=== PATIENT | female | born 1985 | race Caucasian/White ===

== ENCOUNTER → 2023-12-26 11:10 | Outpatient (REF) | payer BC, SELFPAY | LOC: RAD 11:10 | PROVIDERS: ATTENDING PHYSICIAN Obstetrics & Gynecology; FAMILY PHYSICIAN Obstetrics & Gynecology Reproductive Endocrinology | DX: N97.1 Female infertility of tubal origin (principal) | CPT/HCPCS: 58340; 74740 ==

== ENCOUNTER → 2024-03-10 08:17 | Outpatient (REF) | payer BC, SELFPAY ==
[2024-03-10 10:10] LABS: HDL Cholesterol 77 mg/dl; LDL Cholesterol, Calculated 159 mg/dl; Total Cholesterol 252 mg/dl (50-199); Triglyceride 82 mg/dl (10-149); Very Low Density Lipoprotein 16 mg/dl (0-30)
[2024-03-10 10:37] LABS: Glucose 87 mg/dl (70-99)
== END ==
LOC: REG 08:17
PROVIDERS: ATTENDING PHYSICIAN Student in an Organized Health Care Education/Training Program; FAMILY PHYSICIAN Family Medicine
DX: Z13.220 Encounter for screening for lipoid disorders (principal)
CPT/HCPCS: 36415; 80061; 82947

== ENCOUNTER → 2024-04-21 15:02 | Outpatient (REF) | payer BC, SELFPAY ==
[2024-04-21 15:36] LABS: % Basophils 0.8 % (0-2); % Eosinophils 2.5 % (0-6); % Immature Granulocytes 0.3 % (0-0.5); % Lymphocytes 23.7 % (20.5-51.1); % Monocytes 6.2 % (1.7-9.3); % Neutrophils 66.5 % (42.2-75.2); Absolute Basophils 0.1 10^3/uL (0-0.2); Absolute Eosinophils 0.2 10^3/uL (0-0.7); Absolute Lymphocytes 2.3 10^3/uL (1.2-3.4); Absolute Monocytes 0.6 10^3/uL (0.1-0.6); Absolute Neutrophils 6.5 10^3/uL (1.4-6.5); Hematocrit 36.1 % (37.0-47.0); Hemoglobin 12.7 g/dL (12.0-16.0); Mean Corp Hgb Conc. 35.2 g/dL (33.0-37.0); Mean Corpuscular Hgb 31.4 pg (27.0-31.0); Mean Corpuscular Volume 89.4 fL (81.0-99.0); Nucleated Red Blood Cells % 0 %; Platelet Count 254 10^3/uL (130-400); Red Blood Cell Count 4.04 10^6/uL (4.20-5.40); Red Cell Dist. Width 12.1 % (11.5-14.5); White Blood Cell Count 9.7 10^3/uL (4.8-10.8)
[2024-04-21 15:45] LABS: Urine Albumin Negative (Neg - Trace); Urine Bilirubin Negative (Negative); Urine Character Clear (Clear); Urine Color Yellow; Urine Glucose Negative (Negative); Urine Ketone Negative (Negative); Urine Leukocyte Negative (Negative); Urine Nitrite Negative (Negative); Urine Occult Blood Negative (Negative); Urine Urobilinogen Negative (Neg - 1+)
[2024-04-21 19:13] LABS: Hepatitis B Surface Antigen Negative (Negative)
[2024-04-21 19:30] LABS: Hepatitis C Antibody Negative (Negative)
[2024-04-21 20:13] LABS: Rubella Positive
[2024-04-22 14:47] LABS: Syphilis/T. pallidum Ab Reflex Negative (Negative)
== END ==
LOC: REG 15:02
PROVIDERS: ATTENDING PHYSICIAN Nurse Practitioner Family
DX: Z32.01 Encounter for pregnancy test, result positive (principal)
CPT/HCPCS: 36415; 80055; 81003; 86803; 86850; 86900; 86901; 87086

== ENCOUNTER → 2024-05-19 09:30 | Outpatient (REF) | payer BC, SELFPAY | LOC: PNTC 09:30 | PROVIDERS: ATTENDING PHYSICIAN Student in an Organized Health Care Education/Training Program | DX: O09.519 Supervision of elderly primigravida, unspecified trimester (principal); Z36.0 Encounter for antenatal screening for chromosomal anomalies; Z36.82 Encounter for antenatal screening for nuchal translucency | CPT/HCPCS: 76801; 76813 ==

== ENCOUNTER → 2024-05-28 16:35 | Outpatient (REF) | payer BC, SELFPAY ==
[2024-05-29 17:05] LABS: Urine Albumin Negative (Neg - Trace); Urine Bilirubin Negative (Negative); Urine Character Very Cloudy (Clear); Urine Color Yellow; Urine Glucose Negative (Negative); Urine Ketone Negative (Negative); Urine Nitrite Negative (Negative); Urine Occult Blood Negative (Negative); Urine Specific Gravity 1.025 (<1.030); Urine Urobilinogen Negative (Neg - 1+)
[2024-05-29 17:14] LABS: Urine Leukocyte Negative (Negative)
== END ==
LOC: CLAB 16:35
PROVIDERS: ATTENDING PHYSICIAN Student in an Organized Health Care Education/Training Program
DX: O09.521 Supervision of elderly multigravida, first trimester (principal); R31.9 Hematuria, unspecified
CPT/HCPCS: 81003; 87086

== ENCOUNTER → 2024-07-16 16:09 | Outpatient (REF) | payer BC, SELFPAY | LOC: PNTC 16:09 | PROVIDERS: ATTENDING PHYSICIAN Student in an Organized Health Care Education/Training Program | DX: O09.519 Supervision of elderly primigravida, unspecified trimester (principal) | CPT/HCPCS: 76811 ==

== ENCOUNTER → 2024-07-25 14:06 | Outpatient (REF) | payer BC, SELFPAY | LOC: REG 14:06 | PROVIDERS: ATTENDING PHYSICIAN Student in an Organized Health Care Education/Training Program | DX: J06.9 Acute upper respiratory infection, unspecified (principal) | CPT/HCPCS: 36415; 87502 ==

== ENCOUNTER → 2024-08-15 14:45 | Outpatient (REF) | payer BC, SELFPAY ==
[2024-08-15 16:58] LABS: % Basophils 0.5 % (0-2); % Eosinophils 1.9 % (0-6); % Immature Granulocytes 0.8 % (0-0.5); % Monocytes 6.1 % (1.7-9.3); % Neutrophils 73.7 % (42.2-75.2); Absolute Basophils 0.1 10^3/uL (0-0.2); Absolute Eosinophils 0.2 10^3/uL (0-0.7); Absolute Immature Granulocytes 0.1 10^3/uL (0-0.05); Absolute Lymphocytes 1.9 10^3/uL (1.2-3.4); Absolute Monocytes 0.7 10^3/uL (0.1-0.6); Absolute Neutrophils 8.2 10^3/uL (1.4-6.5); Hematocrit 30.3 % (37.0-47.0); Hemoglobin 10.5 g/dL (12.0-16.0); Mean Corp Hgb Conc. 34.7 g/dL (33.0-37.0); Mean Corpuscular Hgb 34.1 pg (27.0-31.0); Mean Corpuscular Volume 98.4 fL (81.0-99.0); Mean Platelet Volume 10.2 fL (7.4-10.4); Nucleated Red Blood Cells % 0 %; Platelet Count 274 10^3/uL (130-400); Red Blood Cell Count 3.08 10^6/uL (4.20-5.40); Red Cell Dist. Width 13.1 % (11.5-14.5); White Blood Cell Count 11.1 10^3/uL (4.8-10.8)
[2024-08-15 17:12] LABS: 1 Hour after 50gm 130 mg/dl
== END ==
LOC: REG 14:45
PROVIDERS: ATTENDING PHYSICIAN Obstetrics & Gynecology
DX: Z34.93 Encounter for supervision of normal pregnancy, unspecified, third trimester (principal)
CPT/HCPCS: 36415; 82950; 85025; 86780

== ENCOUNTER → 2024-08-27 16:23 | Outpatient (REF) | payer BC, SELFPAY | LOC: PNTC 16:23 | PROVIDERS: ATTENDING PHYSICIAN Student in an Organized Health Care Education/Training Program | DX: O99.519 Diseases of the respiratory system complicating pregnancy, unspecified trimester (principal) | CPT/HCPCS: 76816 ==

== ENCOUNTER → 2024-10-08 16:48 | Outpatient (REF) | payer BC, SELFPAY | LOC: PNTC 16:48 | PROVIDERS: ATTENDING PHYSICIAN Student in an Organized Health Care Education/Training Program | DX: O09.529 Supervision of elderly multigravida, unspecified trimester (principal) | CPT/HCPCS: 76816 ==

== ENCOUNTER → 2024-10-22 14:41 | Outpatient (REF) | payer BC, SELFPAY ==
[2024-10-24 19:01] LABS: HIV Combo Negative (Negative)
== END ==
LOC: REG 14:41
PROVIDERS: ATTENDING PHYSICIAN Obstetrics & Gynecology
DX: O09.512 Supervision of elderly primigravida, second trimester (principal)
CPT/HCPCS: 36415; 87389

== ENCOUNTER → 2024-11-05 13:46 | Outpatient (REF) | payer BC, SELFPAY | LOC: CLAB 13:46 | PROVIDERS: ATTENDING PHYSICIAN Obstetrics & Gynecology | DX: Z36.85 Encounter for antenatal screening for Streptococcus B (principal); O09.523 Supervision of elderly multigravida, third trimester | CPT/HCPCS: 87070 ==

== ENCOUNTER → 2024-11-27 11:14 | Outpatient (REF) | payer OTHER, SELFPAY ==
[2024-11-29 18:48] LABS: Quantiferon NIL 0.02 IU/mL; Quantiferon Plus TB2 minus NIL 0.01 IU/mL (<=0.34); Quantiferon TB Gold Plus Negative (Negative)
== END ==
LOC: OHS 11:14
PROVIDERS: ATTENDING PHYSICIAN Nurse Practitioner Family
DX: Z23 Encounter for immunization (principal)
CPT/HCPCS: 36415; 86480

== ENCOUNTER 2024-12-05 08:58 | Observation (INO) | payer OTHER, SELFPAY ==
[2024-12-05 09:05] VITALS: BP 111/77; BMI 25.4
== END 2024-12-05 10:43 | disposition home or self-care (01) ==
LOC: LDRP 08:58
PROVIDERS: ADMITTING PHYSICIAN Obstetrics & Gynecology
DX: O48.0 Post-term pregnancy (principal); O99.820 Streptococcus B carrier state complicating pregnancy; Z3A.40 40 weeks gestation of pregnancy
CPT/HCPCS: 76815; G0378

== ENCOUNTER 2024-12-08 16:27 | Inpatient (IN) | payer BC, SELFPAY ==
[2024-12-07 23:53] VITALS: BP 130/84; BMI 25.7
[2024-12-08 14:01] LABS: % Basophils 0.6 % (0-2); % Eosinophils 1.6 % (0-6); % Immature Granulocytes 0.7 % (0-0.5); % Monocytes 5.7 % (1.7-9.3); % Neutrophils 76.4 % (42.2-75.2); Absolute Basophils 0.1 10^3/uL (0-0.2); Absolute Eosinophils 0.2 10^3/uL (0-0.7); Absolute Immature Granulocytes 0.1 10^3/uL (0-0.05); Absolute Lymphocytes 1.6 10^3/uL (1.2-3.4); Absolute Monocytes 0.6 10^3/uL (0.1-0.6); Absolute Neutrophils 8.2 10^3/uL (1.4-6.5); Hematocrit 36.2 % (37.0-47.0); Mean Corp Hgb Conc. 35.9 g/dL (33.0-37.0); Mean Corpuscular Hgb 34.4 pg (27.0-31.0); Mean Corpuscular Volume 95.8 fL (81.0-99.0); Mean Platelet Volume 11.4 fL (7.4-10.4); Nucleated Red Blood Cells % 0 %; Platelet Count 178 10^3/uL (130-400); Red Blood Cell Count 3.78 10^6/uL (4.20-5.40); White Blood Cell Count 10.7 10^3/uL (4.8-10.8)
[2024-12-08] MEDS: PITOCIN 30 UNITS/NSS 500 ML IV (14:08)
[2024-12-08] MEDS: PENICILLIN 110 UNITS IV (14:35)
[2024-12-08] MEDS: PENICILLIN 55 UNITS IV ×2 (18:54→22:10)
[2024-12-08] MEDS: TUMS CHEWABLE TABLET 400 MG PO (20:30)
[2024-12-08] MEDS: STADOL 1 MG IV (22:15)
[2024-12-09] MEDS: PENICILLIN 55 UNITS IV ×4 (02:02→14:24)
[2024-12-09] MEDS: STADOL 1 MG IV (02:15)
[2024-12-09] MEDS: BENADRYL 25 MG IV (03:01)
[2024-12-09] MEDS: FENTANYL/BUPIVACAINE 100 EPIDURAL (07:57)
[2024-12-09] MEDS: SUBLIMAZE 100 MCG EPIDURAL (07:57)
[2024-12-09] MEDS: PENICILLIN IV (18:02)
[2024-12-09] MEDS: PITOCIN 30 UNITS/NSS 500 ML IV (18:04)
[2024-12-09] MEDS: CYTOTEC 800 MCG RECTAL (18:05)
[2024-12-09] MEDS: MOTRIN 600 MG PO (18:41)
[2024-12-10 00:08] LABS: Hematocrit 28.5 % (37.0-47.0); Hemoglobin 10.3 g/dL (12.0-16.0); Mean Corp Hgb Conc. 36.1 g/dL (33.0-37.0); Mean Corpuscular Volume 96.9 fL (81.0-99.0); Mean Platelet Volume 11.2 fL (7.4-10.4); Platelet Count 153 10^3/uL (130-400); Red Blood Cell Count 2.94 10^6/uL (4.20-5.40); Red Cell Dist. Width 12.9 % (11.5-14.5); White Blood Cell Count 13.1 10^3/uL (4.8-10.8)
[2024-12-10] MEDS: MOTRIN 600 MG PO ×3 (02:16→23:31)
--- NOTE | 2024-12-10 04:20 | DOWNTIME ---
Addendum entered and electronically signed by Viktoriya Valadez RN 12/10/24 14:04:
Correction: Downtime was 12/10/2024 from 0100 to 12/10/2024 at 0415
Original Note:
There was a [employer] [facility] Interventional Radiologist Downtime on 12/09/2024 from 0100 to 12/10/2024 at 0415. Downtime documentation of patient's care, including medication administrations, has been reconciled in the electronic record per guidelines. Refer to the
patient's paper chart under the miscellaneous tab to see printed paper medication records and downtime forms.
[2024-12-10 06:09] LABS: Hematocrit 28.2 % (37.0-47.0); Hemoglobin 10.1 g/dL (12.0-16.0)
[2024-12-10] MEDS: PRENATAL PLUS 1 TABLET PO (08:45)
[2024-12-10] MEDS: FEOSOL 325 MG PO (19:31)
[2024-12-10] MEDS: SENOKOT-S 1 TABLET PO (19:31)
[2024-12-10] MEDS: TYLENOL 650 MG PO (19:31)
[2024-12-11] MEDS: FEOSOL 325 MG PO (09:37)
[2024-12-11] MEDS: MOTRIN 600 MG PO (09:37)
[2024-12-11] MEDS: PRENATAL PLUS 1 TABLET PO (09:39)
[2024-12-12 14:00] LABS: Syphilis/T. pallidum Ab Reflex Negative (Negative)
== END 2024-12-11 13:05 | disposition home or self-care (01) | DRG 807 ==
LOC: LDRP 16:27
PROVIDERS: Student in an Organized Health Care Education/Training Program; ADMITTING PHYSICIAN Obstetrics & Gynecology
PROC: 10E0XZZ Delivery of Products of Conception, External Approach (ICD-10-PCS; 2024-12-09)
PROC: 10907ZC Drainage of Amniotic Fluid, Therapeutic from Products of Conception, Via Natural or Artificial Opening (ICD-10-PCS; 2024-12-09)
PROC: 0KQM0ZZ Repair Perineum Muscle, Open Approach (ICD-10-PCS; 2024-12-09)
DX: O48.0 Post-term pregnancy (principal); Z37.0 Single live birth; O99.824 Streptococcus B carrier state complicating childbirth; Z3A.41 41 weeks gestation of pregnancy; O70.1 Second degree perineal laceration during delivery
CPT/HCPCS: 85014; 85018; 85025; 85027; 86780; 86850; 86900; 86901

== ENCOUNTER 2024-12-17 15:08 | Inpatient (IN) | payer BC, SELFPAY ==
[2024-12-15 17:31] VITALS: BP 130/85; BMI 25.7
[2024-12-15 19:07] LABS: Hematocrit 37.8 % (37.0-47.0); Hemoglobin 13.6 g/dL (12.0-16.0); Mean Corpuscular Hgb 34.3 pg (27.0-31.0); Mean Corpuscular Volume 95.5 fL (81.0-99.0); Mean Platelet Volume 9.5 fL (7.4-10.4); Platelet Count 283 10^3/uL (130-400); Red Blood Cell Count 3.96 10^6/uL (4.20-5.40); Red Cell Dist. Width 12.6 % (11.5-14.5); White Blood Cell Count 12.1 10^3/uL (4.8-10.8)
[2024-12-15 19:29] LABS: ALT (SGPT) 168 U/L (0-35); AST (SGOT) 78 U/L (14-36); Albumin 4.4 g/dl (3.5-5.0); Alkaline Phosphatase 118 U/L (38-126); Blood Urea Nitrogen 15 mg/dl (7-17); Calcium 9.6 mg/dl (8.4-10.2); Carbon Dioxide 25 mmol/L (22-30); Chloride 109 mmol/L (98-107); Estimated Creatinine Clearance 110 ml/min; Glucose 89 mg/dl (70-99); Sodium 140 mmol/L (135-145); Total Bilirubin 0.6 mg/dl (0.2-1.3); Total Protein 7.4 g/dl (6.3-8.2); eGFR > 60.00
[2024-12-15 19:59] LABS: TSH Reflex To Free T4 2.49 uIU/ml (0.47-4.68)
[2024-12-15] MEDS: MAGNESIUM OXIDE 500 MG PO (21:30)
[2024-12-15] MEDS: MOTRIN 600 MG PO (21:30)
[2024-12-15] MEDS: ATIVAN 0.5 MG PO (21:30)
[2024-12-16] MEDS: ZOLOFT 25 MG PO (08:05)
[2024-12-16] MEDS: PRENATAL PLUS 1 TABLET PO (08:05)
[2024-12-16] MEDS: MOTRIN 600 MG PO ×2 (08:08→15:31)
[2024-12-16 10:23] LABS: Magnesium 2.1 mg/dl (1.6-2.3)
[2024-12-16 10:50] LABS: ALT (SGPT) 133 U/L (0-35); AST (SGOT) 64 U/L (14-36); Magnesium 2.1 mg/dl (1.6-2.3)
--- NOTE | 2024-12-16 15:17 | CS.PSYCHR ---
Consult Summary - Psychiatry
-
Pt is a 39 yo female who delivered her baby dtr on 12/09/24. Pt returned home with her baby, reportedly felt faint here at and had an episode of feeling faint at home, became concerned about being able to safely care for her baby. Pt reports she
got little sleep over the past week, probably 2 to 3 hours per night. She reports she became somewhat scattered/manicky, tangential with multiple obsessive worries, trouble concentrating and making decisions, and came in for evaluation. Pt was
able to sleep through the night last night here in the maternity unit, received Lorazepam 0.5 mg at bedtime with no problems. Pt reports feeling much better, much calmer/clearer today. Pt wants to return home with her baby, also wants to make sure
she is ready to resume caring for her baby. Pt is , pumping here. Family is caring for the infant; pt has support of her , [id number] has been staying with them and her mother is coming to stay with her. Pt had multiple
recent losses over the past year, including miscarriage/ectopic , and loss of her father. Pt was started on Sertraline 25 mg daily on 12/14/24, tolerating thus far; discusses risks/benefits, safety with . Pt does not present
symptoms of depression, denies any thoughts of harm to self or her dtr.
Psych Hx: denied. Has had anxiety though never treated
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
MSE: alert, oriented, calm, cooperative. Speech articulate, thought goal-directed. Affect tearful at times, emotions somewhat heightened, with anxiety about caring for her new-born. Pt denies feeling depressed. No signs of psychosis. She denies
suicidal or homicidal ideation. Insight and judgement are intact.
Impression: Adjustment d/o with anxiety; one-week post- with sleep deprivation. Doubt this is Post- depression
Rec: Agree with continuing trial of Sertraline for anxiety, with outpatient med mgt. Lorazepam 0.5 mg HS prn on occasion can be helpful as well- need to review safety in breast feeding- pt is aware
Outpatient therapy to address life events, losses, anxiety. Will follow if pt stays overnight
[2024-12-16] MEDS: ATIVAN 0.5 MG PO (21:05)
[2024-12-16] MEDS: MAGNESIUM OXIDE 500 MG PO (21:05)
[2024-12-17] MEDS: PRENATAL PLUS 1 TABLET PO (08:17)
[2024-12-17] MEDS: ZOLOFT 25 MG PO (08:17)
[2024-12-17] MEDS: MOTRIN 600 MG PO (08:28)
[2024-12-17 13:15] LABS: Hematocrit 34.1 % (37.0-47.0); Hemoglobin 12.4 g/dL (12.0-16.0); Mean Corp Hgb Conc. 36.4 g/dL (33.0-37.0); Mean Corpuscular Hgb 34.7 pg (27.0-31.0); Mean Corpuscular Volume 95.5 fL (81.0-99.0); Mean Platelet Volume 9.4 fL (7.4-10.4); Platelet Count 261 10^3/uL (130-400); Red Blood Cell Count 3.57 10^6/uL (4.20-5.40); Red Cell Dist. Width 12.3 % (11.5-14.5); White Blood Cell Count 11.5 10^3/uL (4.8-10.8)
[2024-12-17 13:38] LABS: ALT (SGPT) 129 U/L (0-35); AST (SGOT) 61 U/L (14-36); Albumin 3.7 g/dl (3.5-5.0); Alkaline Phosphatase 111 U/L (38-126); Blood Urea Nitrogen 18 mg/dl (7-17); Calcium 8.7 mg/dl (8.4-10.2); Carbon Dioxide 21 mmol/L (22-30); Chloride 111 mmol/L (98-107); Estimated Creatinine Clearance 110 ml/min; Glucose 81 mg/dl (70-99); Potassium 4.2 mmol/L (3.5-5.1); Sodium 136 mmol/L (135-145); Total Bilirubin 0.5 mg/dl (0.2-1.3); Total Protein 6.2 g/dl (6.3-8.2); eGFR > 60.00
--- NOTE | 2024-12-17 15:59 | W.PN.UPDATE ---
Addendum entered and electronically signed by Felicia Parra MD 12/18/24 09:38:
this is a late entry for yesterday as i spoke to ms marichuy aaron who is to see patient for therapy after dc. ms aaron called me at the request of dr norris as she has an appt with her this coming sunday via telehealth. purpose was to provide
information and observations for further patient treatment.
Original Note:
Update Note
Progress Note Update
patient seen chart reviewed. spoke with dr brooks. patient's mother in law at bedside. i have spoken to patient several times this week including sunday and sunday of this week as well as today and the day after she gave . i do note a
change in her demeanor that seems to me to be consistent with the development of noemi or at the very least hypomania. she is hyperverbal. she admits her thoughts are racing. she is having a lot of diffculty sleeping which has been ongoing since the
last month of and getting worse. she is hypervigilant with tremendous anxiety about harm coming to the baby. (she is NOT expressing thoughts of harming the baby ). she is also preoccupied with harm coming to other kids including her
nieces and nephews and struggles to turn her thoughts away from these fears. her affect is rather labile from sadness to smiles to rather constricted. she has fh of noemi in her father who was thought to have become floridly manic maybe after
having received prednisone for crohn's although the noemi lingered long after the prednisone. discussed with dr brooks and patient adding abilify at hs start very low with 1 mg today likely inc to 2 mg tomorrow. moved zoloft to hs as well i chose
hs as patient could pump prior and the next am and hopefully the concentration in breast milk would be lower. the patient is NOT suicidal . she very much wants to get well and take care of her baby. wrote down for her several reminders which she
asked me to do namely worry about your stuff only.....eat! even forbidden foods eg ice cream and cookies.....let people help you.....etc etc. will follow
[2024-12-17] MEDS: MAGNESIUM SULFATE 100 IV (16:37)
[2024-12-17] MEDS: MAGNESIUM SULFATE 40 GRAM 1000 IV (16:52)
[2024-12-17] MEDS: ATIVAN 0.5 MG PO (17:46)
[2024-12-17] MEDS: MAGNESIUM OXIDE PO (18:46)
[2024-12-17] MEDS: ABILIFY 1 MG PO (21:54)
[2024-12-18] MEDS: MOTRIN 600 MG PO ×3 (01:15→14:13)
[2024-12-18 06:20] LABS: Hematocrit 34.1 % (37.0-47.0); Hemoglobin 12.4 g/dL (12.0-16.0); Mean Corp Hgb Conc. 36.4 g/dL (33.0-37.0); Mean Corpuscular Hgb 34.2 pg (27.0-31.0); Mean Corpuscular Volume 93.9 fL (81.0-99.0); Mean Platelet Volume 9.1 fL (7.4-10.4); Platelet Count 239 10^3/uL (130-400); Red Blood Cell Count 3.63 10^6/uL (4.20-5.40); Red Cell Dist. Width 12.2 % (11.5-14.5); White Blood Cell Count 8.5 10^3/uL (4.8-10.8)
[2024-12-18 06:55] LABS: ALT (SGPT) 120 U/L (0-35); AST (SGOT) 58 U/L (14-36); Albumin 3.6 g/dl (3.5-5.0); Alkaline Phosphatase 114 U/L (38-126); Blood Urea Nitrogen 14 mg/dl (7-17); Calcium 6.7 mg/dl (8.4-10.2); Carbon Dioxide 21 mmol/L (22-30); Chloride 109 mmol/L (98-107); Estimated Creatinine Clearance 110 ml/min; Glucose 86 mg/dl (70-99); Sodium 136 mmol/L (135-145); Total Bilirubin 0.5 mg/dl (0.2-1.3); eGFR > 60.00
[2024-12-18] MEDS: PRENATAL PLUS 1 TABLET PO (07:53)
--- NOTE | 2024-12-18 09:45 | LACTATION ---
Spoke to Brea about her medications. She is taking Abilify and Ativan. These are both rated 'L3 - presumed compatible' by [facility].
[2024-12-18] MEDS: MAGNESIUM SULFATE 40 GRAM 1000 IV (11:59)
[2024-12-18] MEDS: TYLENOL 650 MG PO (12:50)
--- NOTE | 2024-12-18 15:00 | W.PN.UPDATE ---
Update Note
Progress Note Update
patient seen chart reviewed. discussed with nursing and last evening with hui elena md. jimi continues w racing thoughts . she is somewhat hyperverbal and tangential. her mood is c/w a rather dysphoric hypomania/noemi. she tolerated
abilify last night one mg . she slept slightly better but was troubled by her racing mind. she is not having thoughts of harming herself or others. we discussed increasing the abilify to 2 mg. continue the small dose of zoloft 25 mg for now. she
is planning on leaving hospital today. she has a lot of support in her home ..mother and mother in law as well as spouse. i will call her tomorrow. i would like her to reschedule the appt she made with marichuy aaron who is a psychologist
specializing in post psych issues. i am going to try and get her an appt with dr alcantar's office for psych meds. told her i would call her tomorrow.
[2024-12-18] MEDS: ABILIFY 2 MG PO (21:42)
[2024-12-18] MEDS: ZOLOFT 25 MG PO (21:42)
[2024-12-18] MEDS: MAGNESIUM OXIDE PO (22:00)
[2024-12-19] MEDS: ATIVAN 0.5 MG PO (00:49)
[2024-12-19] MEDS: MOTRIN 600 MG PO ×2 (01:42→08:45)
[2024-12-19] MEDS: PRENATAL PLUS 1 TABLET PO (08:17)
--- NOTE | 2024-12-19 09:32 | LACTATION ---
[facility]ed [facility] to ask about the 3 psych drugs that Brea is currently taking. They stated that Abilify and Zoloft are fine to breastfeed on. She stated that ideally for Lorazepam mom should wait 2 hours after taking it to pump or
breastfeed. I asked the rep about the milk that's already stored in the fridge and we don't know what time she was medicated. The rep said she is not worried about that milk in the fridge, just may want to do that going forward. I asked about
cutting breastmilk with formula since mom is planning to do both breast and formula. The rep stated that this was not necessary.
[2024-12-19] MEDS: TYLENOL 650 MG PO (09:58)
--- NOTE | 2024-12-19 13:33 | CM ---
Patient seen at bedside in labor and delivery at nursing request and with the consent of the patient. Patient to use [facility] on [address] for medications. CM available for patient support, patient will call if needed, psychiatry to follow. CM will be
available as needed for further discharge planning needs.
plan; supports as outlined by physicians and family supports.
--- NOTE | 2024-12-19 13:36 | W.PN.UPDATE ---
Update Note
Progress Note Update
patient seen chart reviewed. spoke with dr brooks, cm and nursing maria eugenia. Patient still s/w manic but improving. she reports she did sleep well last night. full four hours...then awakened for bp..then easily fell back asleep. she wants very
much to go home and take care of her baby. she is still anxious about her new role as a mother but ready to take it on with the support of her mother mother in law and in the home. she is having no ill effects from abilify 2 mg which is
continued and will be called in to [facility] in [place]. she is not expressing harm to self or others. appetite is good. she will call dr marichuy aaron the post specialist next week for an appt.i had spoke to dr aaron this am and she
agreed patient needed to get home to [place] with her child as do i and dr brooks. she will be seen at dr alcantar's office for med mgt. i gave her his number and have been in touch with him about caring for her as well. have dc'ed zoloft at this point.
she can call me in the case of any emergency or concerns on my cell phone
--- NOTE | 2024-12-19 15:44 | LACTATION ---
Reviewed the information from [facility] with Brea and Eddi. Let her know that she should wait 2 hours after taking Ativan before . Also that baby should be observed for somnolence on Abilify. Brea declined to take the print outs
from [facility] about the medications.
== END 2024-12-19 16:00 | disposition home or self-care (01) | DRG 882 ==
LOC: LDRP 15:08
PROVIDERS: Student in an Organized Health Care Education/Training Program; ADMITTING PHYSICIAN Obstetrics & Gynecology; OTHER PHYSICIAN Psychiatry & Neurology Psychiatry
DX: F43.22 Adjustment disorder with anxiety (principal); Z72.820 Sleep deprivation
CPT/HCPCS: 80053; 83735; 84443; 84450; 84460; 85027